=== PATIENT | male | born 1980 | race Hispanic/Latino ===

== ENCOUNTER 2022-12-19 19:48 | Emergency (ER) | payer OTHER ==
[2022-12-19] MEDS ORDERED: NA CHLORIDE 0.9% 500 ML ONE (21:22)
[2022-12-19 21:32] LABS: Absolute Lymphocytes (CBC) 1.8 K/uL (0.7-4.9); Hematocrit 43.1 % (39.6-49.0); Lymphocytes % 30.4 % (15.3-44.8); MCV 94.8 fL (80-100); MPV 6.5 fL (7.6-11.3); RBC Red Blood Cell Count 4.55 M/uL (4.33-5.43)
[2022-12-19 21:54] LABS: Albumin 4.1 g/dL (3.4-5.0); Bilirubin Total 0.4 mg/dL (0.2-1.0); Potassium 3.5 mmol/L (3.5-5.1); Protein, Total 7.3 g/dL (6.4-8.2)
--- NOTE | 2022-12-19 22:22 | RAD REPORT ---
EXAM DESCRIPTION: CT - Head Brain Wo Cont - 12/19/2022 9:46 pm CLINICAL HISTORY: DIZZINESS COMPARISON: No comparisons TECHNIQUE: Noncontrast head CT images ad were obtained without IV contrast. Multiplanar reformats we re generated and reviewed. All CT scans are performed using dose optimization technique as appropriate and may include automated exposure control or mA/KV adjustment according to patient size. FINDINGS: No intracranial hemorrhage, mass, or edema. Midline structures are unremarkable. Normal ventricular caliber for age. Left frontal craniotomy, with underlying encephalomalacia. Garcia-white matter differentiation is other black preserved, without evidence of acute infarct. No abnormal extra-axial fluid collections. Mastoid air cells and visualized portions of the paranasal sinuses are clear. No acute bony findings. IMPRESSION: No evidence of an acute intracranial process. Sequelae of left frontal craniotomy, with underlying encephalomalacia.
[2022-12-20 04:50] VITALS: TEMP 97.6
[2022-12-20 04:53] VITALS: BP 132/50; O2SAT 99
--- NOTE | 2022-12-22 13:09 | EKG ---
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
--- NOTE | 2022-12-22 13:09 | EKG ---
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
--- NOTE | 2023-01-02 16:22 | ER ---
Nurse's Notes [facility] Name: Tex Muhammad Age: 42 yrs Sex: Male : 1980 Arrival Date: 12/19/2022 Time: 20:23 Bed 5 Private MD: Diagnosis: Dizziness and giddiness;Other seizures-HX OF Presentation: 12/19 20:30 Chief complaint: EMS states: "pt started to feel bad and dizzy while walking and kr3 driving. Pt doesn't know if he accidentally took double seizure medication or sleeping medication". Coronavirus screen: Vaccine status: Patient reports being unvaccinated. Ebola Screen: No symptoms or risks identified at this time. Initial Sepsis Screen: Does the patient meet any 2 criteria? No. Patient's initial sepsis screen is negative. Does the patient have a suspected source of infection? No. Patient's initial sepsis screen is negative. Risk Assessment: Do you want to hurt yourself or someone else? Patient reports no desire to harm self or others. Onset of symptoms was December 19, 2022. 20:30 Acuity: PIPPA 3 kr3 20:30 Method Of Arrival: EMS: [facility] kr3 Historical: - Allergies: 20:31 No Known Allergies; kr3 - Home Meds: 20:31 Rivac [Active]; Tromizen [Active]; clobazam oral [Active]; kr3 - PMHx: 20:34 Seizure; kr3 - PSHx: 20:34 Craniotomy; kr3 - Immunization history:: Adult Immunizations up to date. - Social history:: Smoking status: Patient denies any tobacco usage or history of. - Family history:: not pertinent. Screenin:34 [facility] ED Fall Risk Assessment (Adult) History of falling in the last 3 months, kr3 including since admission No falls in past 3 months (0 pts) Confusion or Disorientation No (0 pts) Intoxicated or Sedated No (0 pts) Impaired Gait No (0 pts) Mobility Assist Device Used No (0 pt) Altered Elimination No (0 pt) Score/Fall Risk Level 0 - 2 = Low Risk Oriented to surroundings, Maintained a safe environment, Educated pt \\T\\ family on fall prevention, incl call for assistance when getting out of bed. Abuse screen: Denies threats or abuse. Nutritional screening: No deficits noted. Tuberculosis screening: No symptoms or risk factors identified. Assessment: 20:00 General: Appears in no apparent distress. Behavior is calm, cooperative. Pain: Denies mb9 pain. Neuro: Level of Consciousness is awake, alert, obeys commands, Oriented to person, place, time, situation, Reports dizziness. Cardiovascular: Rhythm is regular. Respiratory: Airway is patent Respiratory effort is even, unlabored, Respiratory pattern is regular, symmetrical. Derm: Skin is pink, warm \\T\\ dry. Musculoskeletal: Range of motion: intact in all extremities. 21:24 Reassessment: Patient and/or family updated on plan of care and expected duration. Pain ha1 level reassessed. Patient is alert, oriented x 3, equal unlabored respirations, skin warm/dry/pink. Patient denies pain at this time. 22:00 Reassessment: Patient and/or family updated on plan of care and expected duration. Pain ha1 level reassessed. Patient is alert, oriented x 3, equal unlabored respirations, skin warm/dry/pink. Patient denies pain at this time. 23:15 Reassessment: Patient and/or family updated on plan of care and expected duration. Pain ha1 level reassessed. Patient is alert, oriented x 3, equal unlabored respirations, skin warm/dry/pink. Patient denies pain at this time. Vital Signs: 20:30 BP 175 / 93; Pulse 65; Resp 18; Temp 97.6; Pulse Ox 100% ; Weight 99.79 kg; Height 5 kr3 ft. 7 in. ; 21:24 BP 133 / 45; Pulse 61; Resp 16 S; Pulse Ox 97% on R/A; ha1 23:00 BP 132 / 50; Pulse 58; Resp 18 S; Pulse Ox 99% on R/A; ha1 20:30 Body Mass Index 34.46 (99.79 kg, 170.18 cm) kr3 NIH Stroke Scale Scores: 21:21 NIHSS Score: 1 [facility] ED Course: 20:23 Patient arrived in ED. sb4 20:30 Joseline Villaseñor, SHANEKA is Primary Nurse. kr3 20:30 Spencer Moeller MD is Attending Physician. sadie 20:30 Arm band placed on. kr3 20:31 Triage completed. kr3 20:33 Bed in low position. Call light in reach. Side rails up X 1. Client placed on kr3 continuous cardiac and pulse oximetry monitoring. NIBP monitoring applied. monitoring specialist on. 20:34 No provider procedures requiring assistance completed. kr3 21:15 Inserted saline lock: 20 gauge in left antecubital area, using aseptic technique. Blood ha1 collected. 21:23 Comprehensive Metabolic Panel Sent. mb9 21:23 CBC with Diff Sent. mb9 21:47 CT Head Brain wo Cont In Process Unspecified. EDMS 22:44 Fernie Villafuerte MD is Referral Physician. sadie 23:16 IV discontinued, intact, bleeding controlled, No redness/swelling at site. Pressure ha1 dressing applied. Administered Medications: 21:22 Drug: NS 0.9% IV 500 ml Route: IV; Rate: bolus; Site: right antecubital; mb9 22:40 Follow up: Response: No adverse reaction; IV Status: Completed infusion mb9 Medication: 20:34 VIS not applicable for this client. kr3 Outcome: 22:44 Discharge ordered by . sadie 23:16 Discharged to home ambulatory. ha1 23:16 Condition: stable 23:16 Discharge instructions given to patient, Instructed on discharge instructions, follow up and referral plans. Demonstrated understanding of instructions, follow-up care. 23:17 Patient left the ED. ha1 NIH Stroke Scale - NIH Stroke Score Date: 12/19/2022 Time: 21:21 Total Score = 1 10. Dysarthria (speech clarity - read or repeat words) - 0(Normal) 11. Extinction and Inattention (visual/tactile/auditory/spatial/personal) - 0(No abnormality) 1a. Level of Consciousness (LOC) - 0(Alert) 1b. Level of Consciousness (LOC) (Month \\T\\ Age) - 0(Both) 1c. LOC Commands (Open \\T\\ Closes Eyes/[employer]) - 0(Both) 2. Best Gaze (Lateral Gaze Paresis) - 0(Normal) 3. Visual Field Loss - 0(No visual loss) 4. Facial Palsy - 0(Normal) 5a. Left Arm: Motor (10-second hold) - 0(No drift) 5b. Right Arm: Motor (10-second hold) - 0(No drift) 6a. Left Leg: Motor (5-second hold - always test supine) - 0(No drift) 6b. Right Leg: Motor (5-second hold - always test supine) - 0(No drift) 7. Limb Ataxia (finger/nose \\T\\ heel/carbaajl - test with eyes open) - 0(Absent) 8. Sensory Loss (pinprick arms/legs/face) - 0(Normal) 9. Best Language: Aphasia (description/naming/reading) - 1(Mild to moderate aphasia) Initials: sadie Signatures: Dispatcher [employer] Spencer Palmer MD MD cha Ayala, Heidy, RN RN ha1 Joseline Villaseñor RN RN kr3 Maricruz Kelley, PA-C PA-C [email or web address] Regina Oropeza, RN RN mb9
--- NOTE | 2023-01-02 16:22 | EDPHYS ---
Physician Documentation [facility] Name: Tex Muhammad Age: 42 yrs Sex: Male : 1980 Arrival Date: 12/19/2022 Time: 20:23 Bed 5 Private MD: YECENIA Physician Spencer Moeller HPI: 12/19 21:21 This 42 yrs old Male presents to ER via EMS with complaints of DIZZY, POOR sadie MEMORY, TOOK NYQUIL. 21:21 The patient presents with dizziness, lightheadedness. Onset: The symptoms/episode sadie began/occurred just prior to arrival. Context: occurred at work. Modifying factors: The symptoms are alleviated by nothing, the symptoms are aggravated by nothing. Associated signs and symptoms: The patient has no apparent associated signs or symptoms. Severity of symptoms: At their worst the symptoms were mild in the emergency department the symptoms have resolved and did so just prior to arrival. Patient's baseline: Neuro: alert and fully oriented, Motor: no deficits, Ambulation: walks without assistance, Speech: normal, normal for age, The patient has a previous history of seizure disorder. The patient has not experienced similar symptoms in the past. Historical: - Allergies: 20:31 No Known Allergies; kr3 - Home Meds: 20:31 Rivac [Active]; Tromizen [Active]; clobazam oral [Active]; kr3 - PMHx: 20:34 Seizure; kr3 - PSHx: 20:34 Craniotomy; kr3 - Immunization history:: Adult Immunizations up to date. - Social history:: Smoking status: Patient denies any tobacco usage or history of. - Family history:: not pertinent. ROS: 21:21 Constitutional: Negative for fever, chills, and weight loss, Eyes: Negative for injury, sadie pain, redness, and discharge, ENT: Negative for injury, pain, and discharge, Neck: Negative for injury, pain, and swelling, Cardiovascular: Negative for chest pain, palpitations, and edema, Respiratory: Negative for shortness of breath, cough, wheezing, and pleuritic chest pain, Abdomen/GI: Negative for abdominal pain, nausea, vomiting, diarrhea, and constipation, Back: Negative for injury and pain, : Negative for injury, bleeding, discharge, and swelling, MS/Extremity: Negative for injury and deformity, Skin: Negative for injury, rash, and discoloration, Psych: Negative for depression, anxiety, suicide ideation, homicidal ideation, and hallucinations, Allergy/Immunology: Negative for hives, rash, and allergies, Endocrine: Negative for neck swelling, polydipsia, polyuria, polyphagia, and marked weight changes, Hematologic/Lymphatic: Negative for swollen nodes, abnormal bleeding, and unusual bruising. 21:21 Neuro: Positive for dizziness. Exam: 21:21 Constitutional: This is a well developed, well nourished patient who is awake, alert, sadie and in no acute distress. Head/Face: Normocephalic, atraumatic. Eyes: Pupils equal round and reactive to light, extra-ocular motions intact. Lids and lashes normal. Conjunctiva and sclera are non-icteric and not injected. Cornea within normal limits. Periorbital areas with no swelling, redness, or edema. ENT: Nares patent. No nasal discharge, no septal abnormalities noted. Tympanic membranes are normal and external auditory canals are clear. Oropharynx with no redness, swelling, or masses, exudates, or evidence of obstruction, uvula midline. Mucous membranes moist. Neck: Trachea midline, no thyromegaly or masses palpated, and no cervical lymphadenopathy. Supple, full range of motion without nuchal rigidity, or vertebral point tenderness. No Meningismus. Chest/axilla: Normal chest wall appearance and motion. Nontender with no deformity. No lesions are appreciated. Cardiovascular: Regular rate and rhythm with a normal S1 and S2. No gallops, murmurs, or rubs. Normal PMI, no JVD. No pulse deficits. Respiratory: Lungs have equal breath sounds bilaterally, clear to auscultation and percussion. No rales, rhonchi or wheezes noted. No increased work of breathing, no retractions or nasal flaring. Abdomen/GI: Soft, non-tender, with normal bowel sounds. No distension or tympany. No guarding or rebound. No evidence of tenderness throughout. Back: No spinal tenderness. No costovertebral tenderness. Full range of motion. Male : Normal genitalia with no discharge or lesions. Skin: Warm, dry with normal turgor. Normal color with no rashes, no lesions, and no evidence of cellulitis. MS/ Extremity: Pulses equal, no cyanosis. Neurovascular intact. Full, normal range of motion. Neuro: Awake and alert, GCS 15, oriented to person, place, time, and situation. Cranial nerves II-XII grossly intact. Motor strength 5/5 in all extremities. Sensory grossly intact. Cerebellar exam normal. Normal gait. Psych: Awake, alert, with orientation to person, place and time. Behavior, mood, and affect are within normal limits. 22:43 ECG was reviewed by the Attending Physician. [facility] Vital Signs: 20:30 BP 175 / 93; Pulse 65; Resp 18; Temp 97.6; Pulse Ox 100% ; Weight 99.79 kg; Height 5 kr3 ft. 7 in. ; 21:24 BP 133 / 45; Pulse 61; Resp 16 S; Pulse Ox 97% on R/A; ha1 23:00 BP 132 / 50; Pulse 58; Resp 18 S; Pulse Ox 99% on R/A; ha1 20:30 Body Mass Index 34.46 (99.79 kg, 170.18 cm) kr3 NIH Stroke Scale Scores: 21:21 NIHSS Score: 1 sadie MDM: 20:30 Patient medically screened. sadie 21:24 Differential diagnosis: cardiac arrhythmia, CVA, generalized weakness, hypovolemia, sadie idiopathic dizziness, near-syncope, TIA, vertigo. Data reviewed: vital signs, nurses notes, lab test result(s), EKG, radiologic studies, CT scan. Consideration of Admission/Observation Escalation of care including admission/observation considered. Test considered but Not performed: MRI: NO MRI BRAIN. Care significantly affected by the following chronic conditions: SEIZURE, HX OF BRAIN TUMOR. 12/19 21:08 Order name: CBC with Diff; Complete Time: 22:10 [facility] 12/19 21:08 Order name: Comprehensive Metabolic Panel; Complete Time: 22:10 [facility] 12/19 21:08 Order name: CT Head Brain wo Cont; Complete Time: 22:43 [facility] 12/19 21:20 Order name: EKG; Complete Time: 21:20 [facility] 12/19 21:09 Order name: Seizure Precautions; Complete Time: 21:17 [facility] 12/19 21:20 Order name: EKG - Nurse/Tech; Complete Time: 22:40 sadie EC:43 Rate is 49 beats/min. Rhythm is regular. QRS [place] is Normal. IA interval is normal. QRS sadie interval is normal. QT interval is normal. No Q waves. T waves are Normal. No ST changes noted. Clinical impression: Sinus bradycardia and No evidence of ischemia. Interpreted by me. Reviewed by me. Administered Medications: 21:22 Drug: NS 0.9% IV 500 ml Route: IV; Rate: bolus; Site: right antecubital; mb9 22:40 Follow up: Response: No adverse reaction; IV Status: Completed infusion mb9 Disposition Summary: 12/19/22 22:44 Discharge Ordered Location: Home sadie Problem: new sadie Symptoms: have improved sadie Condition: Stable sadie Diagnosis - Dizziness and giddiness sadie - Other seizures - HX OF sadie Followup: sadie - With: Private Physician - When: 2 - 3 days - Reason: Recheck today's complaints, Continuance of care, Re-evaluation by your physician Followup: sadie - With: - When: 2 - 3 days - Reason: Recheck today's complaints, Continuance of care, Re-evaluation by your physician Discharge Instructions: - Discharge Summary Sheet sadie - Dizziness sadie - Seizure, Adult sadie - Seizure, Adult, [id number] sadie - Dizziness, [id number] sadie Forms: - Medication Reconciliation Form sadie - Thank You Letter sadie - Antibiotic Education sadie - Prescription Opioid Use sadie NIH Stroke Scale - NIH Stroke Score Date: 12/19/2022 Time: 21:21 Total Score = 1 10. Dysarthria (speech clarity - read or repeat words) - 0(Normal) 11. Extinction and Inattention (visual/tactile/auditory/spatial/personal) - 0(No abnormality) 1a. Level of Consciousness (LOC) - 0(Alert) 1b. Level of Consciousness (LOC) (Month \T\ Age) - 0(Both) 1c. LOC Commands (Open \T\ Closes Eyes/Deep Well Contractor) - 0(Both) 2. Best Gaze (Lateral Gaze Paresis) - 0(Normal) 3. Visual Field Loss - 0(No visual loss) 4. Facial Palsy - 0(Normal) 5a. Left Arm: Motor (10-second hold) - 0(No drift) 5b. Right Arm: Motor (10-second hold) - 0(No drift) 6a. Left Leg: Motor (5-second hold - always test supine) - 0(No drift) 6b. Right Leg: Motor (5-second hold - always test supine) - 0(No drift) 7. Limb Ataxia (finger/nose \T\ heel/carbajal - test with eyes open) - 0(Absent) 8. Sensory Loss (pinprick arms/legs/face) - 0(Normal) 9. Best Language: Aphasia (description/naming/reading) - 1(Mild to moderate aphasia) Initials: sadie Signatures: Dispatcher [employer] Spencer Palmer MD MD cha Reid, Kelley, RN RN kr3 Regina Oropeza RN RN mb9
== END 2022-12-19 23:17 | disposition home or self-care (01) ==
LOC: ER 19:48
DX: R42 Dizziness and giddiness (principal); G40.909 Epilepsy, unspecified, not intractable, without status epilepticus
CPT/HCPCS: 93005 ×2; 85025; 36415; 80053; 70450; 96360; 99284; J7040